=== PATIENT | female | born 1940 | race Caucasian/White ===

== ENCOUNTER 2017-01-10 09:53 | Outpatient (CLI) | payer MEDICARE ==
--- NOTE | 2017-01-10 14:19 | CT ---
ABDOMEN CT WITH CONTRAST PELVIC CT WITH CONTRAST: Date: 01/10/17 HISTORY: Acute cognitive decline. Weight loss. Left-sided abdominal pain. COMPARISON: None. TECHNIQUE: An abdomen and pelvis CT are performed with oral and IV contrast. Coronal reformatted images are sub mitted for interpretation. FINDINGS: ABDOMEN CT: Ground-glass opacities in the lung bases likely due to chronic change. Heart size is upper normal. N o significant pericardial fluid. The descending thoracic aorta and abdominal aorta have an overall n ormal caliber. No periaortic fat stranding. Intra and extrahepatic portal vein is patent. Liver, spleen, pancreas, and adrenal glands have appropriate enhancement. Surgically absent gallbladder. Bilateral extrarenal pelvises are normal. Nonobstructing cortically based calcification in the right kidney. There is adjacent scarring. There is symmetric enhancement of the kidneys. Bilaterally, no obstructive uropathy. There is a hypodensity emanating from the upper pole of the left kidney measur ing 2.0 x 1.9 cm with an attenuation coefficient of 35 Hounsfield units. Subtle areas of hyperdensit y may represent enhancement. Evaluation is incomplete on this examination. Bilaterally, no obstructi ve uropathy. Symmetric attenuation of the psoas muscles. Gastric mucosa, duodenum, and multiple normal caliber small bowel loops are noted. Ileocecal junctio n is normal. Normal caliber appendix. Scattered fecal material in a nondistended, nondilated colon. There are diverticula in the sigmoid colon. No diverticulitis. PELVIC CT: Uterus demonstrates a calcified leiomyoma. Pelvic structures are otherwise unremarkable. No mass, ly mphadenopathy, or free air. Nonspecific calcification in the right hemipelvis. Urinary bladder is un remarkable. There are no osteoblastic or osteolytic lesions. IMPRESSION: 1. Indeterminate hypodensity emanating from the upper pole of the left kidney. Evaluation is incomp lete. Better interrogation with an abdomen MRI is recommended. 2. Colonic diverticulosis, without evidence of diverticulitis. If the patient has not undergone a r ecent colonoscopy, better interrogation of the colon is recommended with colonoscopy. Code T POS: [facility]
[2017-01-10] MEDS ORDERED: Iopamidol 370 76% 100 ML VIAL ONE (15:02)
== END 2017-01-10 09:54 | disposition home or self-care (01) ==
LOC: CT 09:53
PROVIDERS: ATTEND Family Medicine
DX: R41.841 Cognitive communication deficit (principal); K52.9 Noninfective gastroenteritis and colitis, unspecified; R10.84 Generalized abdominal pain; R63.4 Abnormal weight loss; N28.89 Other specified disorders of kidney and ureter; K57.30 Diverticulosis of large intestine without perforation or abscess without bleeding
CPT/HCPCS: 74177

== ENCOUNTER 2017-02-03 10:31 | Outpatient (CLI) | payer MEDICARE ==
--- NOTE | 2017-02-03 13:32 | MRI ---
MRI ABDOMEN WITH AND WITHOUT CONTRAST: Date: 02/03/17 HISTORY: Abnormal finding of the left kidney on a recent CT examination. COMPARISON: CT abdomen and pelvis dated 01/10/17. FINDINGS: In the liver, there is no significant hepatic steatosis. No abnormal enhancing mass within the liver. There is some vascular shunting in the periphery of the liver. There are multiple bilateral renal cysts. The area in question on the prior examination is a simple c yst of the left kidney. No solid component enhancement. There is mild prominence of the bilateral renal collecting systems and renal pelvises with normalizat ion of the proximal ureters. Pancreas is unremarkable. There is focal ectasia of the infrarenal abdom inal aorta which measures 2.3 cm. No dilated loops of bowel in the upper abdomen. Moderate levoscoliosis of the thoracic spine. IMPRESSION: 1. Corresponding to the abnormality in question on the prior CT examination is a simple renal cy st. 2. Mild dilatation of the renal pelvis and calyces suggests chronic low grade ureteropelvic junc tion obstruction. POS: [facility]
[2017-02-03] MEDS ORDERED: Gadobenate Dimeglumine 529 MG/1 ML (20ML VIAL) ONE (15:31)
== END 2017-02-03 10:32 | disposition home or self-care (01) ==
LOC: MRI 10:31
PROVIDERS: ATTEND Family Medicine
DX: R63.4 Abnormal weight loss (principal); R93.429 Abnormal radiologic findings on diagnostic imaging of unspecified kidney; R93.3 Abnormal findings on diagnostic imaging of other parts of digestive tract; N28.1 Cyst of kidney, acquired
CPT/HCPCS: 74183; A9579

== ENCOUNTER 2017-02-21 09:18 | Outpatient (CLI) | payer MEDICARE | END 2017-02-21 09:19 | disposition home or self-care (01) | LOC: BICMAMMO 09:18 | PROVIDERS: ATTEND Family Medicine | DX: Z12.31 Encounter for screening mammogram for malignant neoplasm of breast (principal) | CPT/HCPCS: 77067; G0202 ==

== ENCOUNTER 2017-03-03 07:54 | Outpatient (CLI) | payer MEDICARE ==
--- NOTE | 2017-03-03 11:41 | CT ---
NONCONTRAST LOW DOSE CT THORAX: Date: 03-03-17 History: Smoking history for approximately 30 years. Patient also states pain in mid chest and produc tive cough. Comparison: None available. FINDINGS: No discrete pulmonary nodular mass is seen. There are mild emphysematous changes seen within the uppe r lobes. There is atelectasis present in the lower lobes bilaterally. No pleural effusion is seen. The heart is mildly enlarged. There are dense vascular calcifications seen in the coronary arteries a s well as involving the thoracic aorta. Lack of intravenous contrast limits evaluation of the vascular structures and limits evaluation of th e mediastinum but no enlarged lymph nodes are appreciated on this exam. Pulmonary arteries are promin ent and an element of pulmonary artery hypertension cannot be excluded. Visualized upper abdomen demonstrates a grossly normal nonenhanced CT appearance. There is left convex scoliosis of the thoracic spine with multilevel degenerative changes in the thor acic spine. IMPRESSION: 1. Lung rads category 1 - no pulmonary nodules are visualized. Continued annual low dose screening CT thorax is recommended. 2. Code S - mild prominence of the pulmonary arteries suggesting an element of pulmonary artery hyper tension. 3. Mild emphysematous changes within the upper lobes. 4. Mild cardiomegaly and dense vascular calcifications in the coronary arteries in the thoracic aorta . POS: [facility]
== END 2017-03-03 07:55 | disposition home or self-care (01) ==
LOC: CT 07:54
PROVIDERS: ATTEND Family Medicine
DX: Z87.891 Personal history of nicotine dependence (principal); I51.7 Cardiomegaly
CPT/HCPCS: G0297

== ENCOUNTER 2017-08-04 09:24 | Outpatient (CLI) | payer MEDICARE, OTHER | END 2017-08-04 09:25 | disposition home or self-care (01) | LOC: BICMRI 09:24 | PROVIDERS: ATTEND Psychiatry & Neurology Neurology | DX: R41.3 Other amnesia (principal); I99.8 Other disorder of circulatory system | CPT/HCPCS: 70551 ==

== ENCOUNTER 2017-10-20 12:42 | Outpatient (CLI) | payer MEDICARE, OTHER | END 2017-10-20 12:43 | disposition home or self-care (01) | LOC: CP 12:42 | PROVIDERS: ATTEND Internal Medicine Critical Care Medicine | DX: J44.9 Chronic obstructive pulmonary disease, unspecified (principal) | CPT/HCPCS: 94060; 94727; 94729 ==

== ENCOUNTER 2018-06-22 07:58 | Outpatient (CLI) | payer MEDICARE ==
--- NOTE | 2018-06-22 09:03 | CT ---
FCT pulmonary lung scan without IV contrast INDICATION: Lung cancer screening protocol; 77 year-old females; history of smoking for 40 years, tru t 14 years ago; personal history of tobacco abuse COMPARISON: Prior CT pulmonary lung scan March 03, 2017 FINDINGS: LUNGS: Nodules\mass: There is a 4 mm groundglass pulmonary nodule within the left lower lobe on image 30 of series 3 which is stable. There are sub-4 mm, subpleural pulmonary nodules involving the right upper lobe on image 25 of series 3 which was not present on the prior exam. Emphysema: Moderate to severe Additional findings: No focal consolidation is evident. Mediastinum: There are severe calcifications involving the thoracic aorta and coronary arteries. Ther e are mildly prominent lymph nodes within the mediastinum which are stable. There is prominence of th e pulmonary arterial tree likely related to underlying secondary pulmonary arterial hypertension. Upper abdomen: There is a stable left adrenal adenoma. There is hypodensity involving the superior po le of the left kidney which is stable to comparison CT abdomen pelvis dated 01/31/2018 Osseous structures: There is thoracolumbar scoliosis. There is scattered degenerative and osteoarthri tic change. IMPRESSION: Lung RADS category 2: Benign. Continue annual screening with low-dose CT in 12 months.
== END 2018-06-22 07:59 | disposition home or self-care (01) ==
LOC: CT 07:58
PROVIDERS: ATTEND Family Medicine
DX: Z87.891 Personal history of nicotine dependence (principal)
CPT/HCPCS: G0297

== ENCOUNTER 2018-07-12 22:52 | Inpatient (IN) | payer MEDICARE ==
[2018-07-13 01:17] LABS: Troponin I 0.033 ng/mL (< 0.028)
[2018-07-13] MEDS ORDERED: Acetaminophen 325 MG TAB PO PRN (01:34)
[2018-07-13] MEDS ORDERED: Ondansetron ODT 4 MG TAB PO PRN (01:34)
[2018-07-13] MEDS ORDERED: Ondansetron PF 4 MG/2 ML Vial IVP PRN (01:34)
[2018-07-13] MEDS ORDERED: Dextrose 5% in Water 1,000 ML IV PRN (02:43)
[2018-07-13] MEDS ORDERED: Dextrose 50% Abboject 50 ML SYRINGE SLOW IVP PRN (02:43)
[2018-07-13 03:34] LABS: #Eosinphils 0.1 thou/uL (0.0-0.7); #Lymphocytes 1.9 thou/uL (1.20-3.40); #Monocytes 1.1 thou/uL (0.11-0.59); %Basophils 0.6 % (0.0-1.0); %Eosinophils 1.6 % (0.0-10.0); %Lymphocytes 22.6 % (21.0-51.0); %Neutrophils 61.2 % (42.0-75.0); Hemoglobin 14.1 g/dL (12.0-16.0); Mean Corpuscular Hemoglobin 28.8 pg (27.0-31.0); Mean Platelet Volume 7.3 fL (7.4-10.4); Platelet Count 275 thou/uL (130-400); RBC Distribution Width 13.9 % (11.5-14.5); Red Blood Cell (RBC) Count 4.88 mill/uL (4.20-5.40); White Blood Cell (WBC) Count 8.2 thou/uL (4.8-10.8)
[2018-07-13 03:54] LABS: Anion Gap 12 mmol/L (10-20); BUN (Urea Nitrogen) 14 mg/dL (9.8-20.1); Calc. Creatinine Clearance 0 mL/min (70-130); Calcium 9.5 mg/dL (7.8-10.44); Carbon Dioxide 28 mmol/L (23-31); Chloride 104 mmol/L (98-107); Estimated GFR-MDRD 68; Glucose 103 mg/dL (83-110); Potassium 3.9 mmol/L (3.5-5.1); Sodium 140 mmol/L (136-145)
[2018-07-13 03:58] LABS: Troponin I Less than 0.010 ng/mL (< 0.028)
--- NOTE | 2018-07-13 04:12 | HP ---
PRIMARY CARE DOCTOR: Dr. Tereso Norton. CODE STATUS: Full code. TIME OF EVALUATION: 01:10 a.m. CHIEF COMPLAINT: Shortness of breath and right hip pain. HISTORY OF PRESENT ILLNESS: This is a 77-year-old female patient with past medical history of COPD, congestive heart failure, hypertension, diabetes type 2, came to the hospital after having complaint of shortness of breath. The symptoms have been present for the past day and has been gradually getting worse. No clear triggers, no alleviating factors. The patient has a heart monitor in place that has been given by the office receptionist to monitor for any arrhythmia associated with feeling lightheaded, that has not been the case. The patient was transferred from [place] and was placed on oxygen nasal cannula 2 L to keep saturation over 90. The patient also reported some right hip pain, also present in the lower back on the right side that is also new, and she has been unable to walk due to severe pain. Symptoms are severe, no clear triggers, no alleviating factors. REVIEW OF SYSTEMS: Unable to fully obtain. The patient has dementia. Information has been gathered from the sister as described in HPI. PAST MEDICAL HISTORY: COPD, hypertension, pneumonia, diabetes type 2, and dementia. PAST SURGICAL HISTORY: Cholecystectomy. PSYCH HISTORY: Dementia. FAMILY HISTORY: Reviewed, noncontributory to this case. SOCIAL HISTORY: No alcohol. No drugs. No smoking history. KNOWN ALLERGIES: No known drug allergies. REPORTED MEDICATIONS: 1. Advair. 2. Spiriva. 3. Actos. 4. Meloxicam. 5. Lasix. 6. Aspirin. 7. Cozaar. PHYSICAL EXAMINATION: VITAL SIGNS: On presentation, blood pressure 135/80 with heart rate 69, respiratory rate was 18, and temperature 97.6. Pain 10/10. Oxygen saturation 96% on 4 L. GENERAL APPEARANCE: The patient is alert. Disoriented due to dementia, not in acute distress. HEENT: Eyes, normal conjunctivae. Moist oral mucosa. Anicteric. No JVD. RESPIRATORY: Bilateral air entry is decreased. No rales. No wheezes. Symmetric expansion. CARDIOVASCULAR: Normal rate and regular rhythm. No murmurs. No gallop. EXTREMITIES: Bilateral leg edema 1+. ABDOMEN: Soft. Normal bowel sounds. SKIN: Warm, intact. No pallor. No rash. No redness. Peripheral pulses are present. Capillary refill seems to be intact. NEUROLOGIC: No evidence of any new focal weakness. Baseline speech. Cranial nerves seem to be intact. PSYCH: The patient is in good mood. No anxiety. The patient has dementia, suboptimal judgment. MUSCULOSKELETAL: The patient has right sciatic pain with decreased range of motion and mobility in the right lower extremity due to pain. DIAGNOSTIC DATA: EKG was reviewed. The patient has normal sinus rhythm with a rate of 65 with NC 186, QRS 108, QT corrected 461, RBBB, had some T-wave inversion compatible with inferolateral ischemia. Chest x-ray was reviewed. Enlarged cardiac silhouette with pulmonary vascular congestion. Pelvis x-ray was done. The patient has no displaced pelvic fracture. Chest, thorax CT angio was done. The patient had dilated pulmonary arterial vascular, suggesting pulmonary arterial hypertension. No evidence of pulmonary arterial embolism. No pericardial effusion. Lumbar spine CT was done. No acute osseus abnormalities or degenerative changes. CT evaluation for central canal or neuroforaminal stenosis could be best assessed via followup MRI as clinically warranted. Mild aneurysmal dilation of the infrarenal abdominal aorta. LABORATORY DATA: Labs were reviewed. Troponin 0.033. Hematology: White count 7.4, hemoglobin 13.6, MCV 89.4, and platelet count 262. Chemistry was reviewed. The patient has sodium of 142, potassium 3.9, chloride 108, carbon dioxide 24, anion gap 14, BUN 13, creatinine 0.95, GFR of 57, and glucose 113. Calcium was normal. Magnesium was normal. LFTs were normal. Beta natriuretic peptide was 994. First troponin was normal, second one 0.033. ASSESSMENT AND PLAN: The patient will be placed in the hospital with following medical problems. 1. Acute congestive heart failure. This is a new presentation. The patient also have some changes in the EKG, we will trend troponins, we will diurese the patient, monitor on tele. We will consult Cardiology given new onset of congestive heart failure for any further planning or workup. We will do echo. 2. Right lower extremity sciatic pain. We will treat medically. There is no evidence of any other acute problems, if further concerns are present may do MRI of the spine to rule out any other findings not seen on CT. 3. History of flutter, reconcile home medications. Continue anticoagulation. We will monitor on tele. 4. History of chronic obstructive pulmonary disease. This is chronic, seems to be stable, reconcile home medications. Adjust as needed. 5. Controlled diabetes, I will place the patient on sliding scale for optimal control. 6. Deep venous thrombosis prophylaxis. The patient is on chronic anticoagulation. 7. Dementia. The patient is confused, very good mood and will need supportive care as inpatient. Job ID: [id number] MTDD
[2018-07-13] MEDS: Ipratropium Bromide 2.5 ml Neb NEB SCH ×3 (07:45→18:53)
[2018-07-13] MEDS ORDERED: Spiriva 18 MCG CAP (Box of 5 Caps) INH SCH (09:00)
[2018-07-13] MEDS: Dronedarone HCl 400 MG TAB PO SCH ×2 (11:10→17:39)
[2018-07-13] MEDS: Lisinopril 20 MG TAB PO SCH ×2 (11:10→22:18)
[2018-07-13] MEDS: Furosemide 40 MG/4 ML VIAL SLOW IVP SCH (12:47)
[2018-07-13] MEDS: Apixaban 5 MG TAB PO SCH ×2 (13:24→22:19)
[2018-07-13 14:08] LABS: Mean Corpuscular HGB CONC 31.4 g/dL (32.0-36.0); Mean Corpuscular Hemoglobin 28.2 pg (27.0-31.0); Mean Corpuscular Volume 89.8 fL (78.0-98.0); Mean Platelet Volume 7.5 fL (7.4-10.4); Platelet Count 295 thou/uL (130-400); RBC Distribution Width 13.8 % (11.5-14.5); White Blood Cell (WBC) Count 7.5 thou/uL (4.8-10.8)
[2018-07-13 14:28] LABS: Anion Gap 13 mmol/L (10-20); BUN (Urea Nitrogen) 16 mg/dL (9.8-20.1); Calc. Creatinine Clearance 0 mL/min (70-130); Calcium 9.6 mg/dL (7.8-10.44); Carbon Dioxide 30 mmol/L (23-31); Chloride 101 mmol/L (98-107); Estimated GFR-MDRD 60; Glucose 87 mg/dL (83-110); Magnesium 2.1 mg/dL (1.6-2.6); Potassium 4.1 mmol/L (3.5-5.1); Sodium 140 mmol/L (136-145)
[2018-07-13 16:17] VITALS: BMI 20.3
[2018-07-14] MEDS: Ipratropium Bromide 2.5 ml Neb NEB SCH ×4 (00:08→18:56)
[2018-07-14 06:57] LABS: Hemoglobin 13.7 g/dL (12.0-16.0); Mean Corpuscular HGB CONC 32.2 g/dL (32.0-36.0); Mean Corpuscular Hemoglobin 29.4 pg (27.0-31.0); Mean Corpuscular Volume 91.2 fL (78.0-98.0); Mean Platelet Volume 7.9 fL (7.4-10.4); Platelet Count 256 thou/uL (130-400); RBC Distribution Width 13.8 % (11.5-14.5); Red Blood Cell (RBC) Count 4.66 mill/uL (4.20-5.40)
[2018-07-14 07:31] LABS: Anion Gap 13 mmol/L (10-20); BUN (Urea Nitrogen) 21 mg/dL (9.8-20.1); Calc. Creatinine Clearance 44 mL/min (70-130); Calcium 9.4 mg/dL (7.8-10.44); Carbon Dioxide 27 mmol/L (23-31); Chloride 100 mmol/L (98-107); Estimated GFR-MDRD 58; Glucose 71 mg/dL (83-110); Magnesium 1.7 mg/dL (1.6-2.6); Potassium 3.6 mmol/L (3.5-5.1); Sodium 136 mmol/L (136-145)
[2018-07-14] MEDS: Dronedarone HCl 400 MG TAB PO SCH ×2 (08:36→17:00)
[2018-07-14] MEDS: Lisinopril 20 MG TAB PO SCH ×2 (08:36→21:18)
[2018-07-14] MEDS: Apixaban 5 MG TAB PO SCH ×2 (08:36→21:18)
[2018-07-14] MEDS: Furosemide 40 MG/4 ML VIAL SLOW IVP SCH (08:36)
--- NOTE | 2018-07-14 16:36 | PRG ---
DATE OF SERVICE: 07/14/2018 SUBJECTIVE: The patient is seen and examined at the bedside. She complains about right hip pain. Her shortness of breath is slightly better. OBJECTIVE: VITAL SIGNS: Blood pressure is 96/54, pulse is 71, respiratory rate is 14, O2 saturation is 93% on 2 L by nasal cannula, and temperature is 97.8. HEENT: Head is atraumatic and normocephalic. Eyes are PERRLA. Sclerae are nonicteric. Oral mucosa is moist. NECK: Supple. LUNGS: Breath sounds are slightly diminished at both bases. No wheezing. No rales. HEART: S1 and S2 normal. No S3. No S4. ABDOMEN: Soft, nontender, and nondistended. Bowel sounds are present. No organomegaly. EXTREMITIES: There is pain in the right sacroiliac joint area on palpation. Her right hip joint is having good range of motion without any pain. NEUROLOGICAL: She is alert and oriented x4. There is no any motor or sensory deficit present. Cranial nerves are intact. LABORATORY DATA: Showed normal CBC. Normal electrolytes, BUN of 21, creatinine 0.94, normal glycemia. BNP down to 235.6. IMPRESSION: 1. Congestive heart failure, acute onset, improved with IV Lasix. Echocardiogram is pending. 2. History of chronic obstructive pulmonary disease. 3. Hypertension. 4. Diabetes mellitus, type 2. 5. History of dementia. PLAN: 1. Plan is to continue her gentle diuresis. Check echocardiogram results. Start her on prednisone 20 mg once a day p.o. for this right sacroiliac joint inflammation. 2. History of flutter. The patient is back on her anticoagulation medications, Eliquis and Multaq. We will continue sliding scale. Job ID: [id number]
[2018-07-15] MEDS: Ipratropium Bromide 2.5 ml Neb NEB SCH ×5 (00:18→23:23)
[2018-07-15] MEDS: predniSONE 20 MG TAB PO SCH (09:44)
[2018-07-15] MEDS: Dronedarone HCl 400 MG TAB PO SCH ×2 (09:44→16:10)
[2018-07-15] MEDS: Apixaban 5 MG TAB PO SCH ×2 (09:44→21:48)
[2018-07-15] MEDS: Lisinopril 20 MG TAB PO SCH ×2 (09:45→21:52)
[2018-07-15] MEDS: Furosemide 40 MG/4 ML VIAL SLOW IVP SCH (09:45)
[2018-07-15] MEDS ORDERED: Albuterol Sulfate 2.5 mg/3 ml Neb NEB PRN (16:44)
--- NOTE | 2018-07-15 17:26 | PRG ---
DATE OF SERVICE: 07/15/2018 SUBJECTIVE: The patient is seen and examined at the bedside. She is feeling somewhat better. Her pain level improved. OBJECTIVE: VITAL SIGNS: Blood pressure is 110/56, pulse is 79, temperature is 97.9, respirations 19, O2 saturation is 93% on 2 L by nasal cannula. HEENT: Head is atraumatic and normocephalic. Eyes are PERRLA. Sclerae are nonicteric. Oral mucosa is moist. NECK: Supple. LUNGS: Breath sounds somewhat diminished at both bases. HEART: S1 and S2, somewhat irregular. No S3. No S4. ABDOMEN: Soft and nontender. EXTREMITIES: No clubbing, cyanosis, or edema. NEUROLOGIC: She follows my commands. She moves her all 4 extremities, although there is some pain on palpation of the right sacroiliac joint area. LABORATORY DATA: Glycemia is ranging from 86 to 181. Echocardiogram showed ejection fraction of the left ventricle at 50% to 55%, moderately dilated left atrium, markedly enlarged right atrium size, severely enlarged right ventricle cavity, and [id number] tricuspid regurgitation with right ventricular systolic pressure elevation. IMPRESSION: 1. Congestive heart failure with some cor pulmonale and dilatation of the right ventricle. 2. History of chronic obstructive pulmonary disease. 3. Hypertension. 4. Diabetes mellitus. 5. Right sacroiliac joint area pain, which is most likely inflammatory. 6. History of dementia. 7. Diabetes mellitus. PLAN: Plan is to continue her gentle diuresis. She is improving. Her shortness of breath improved. Her right hip area/pelvis area pain improved too. We will continue her PT. We will continue her anticoagulation with Eliquis and Multaq. We will continue her sliding scale. Her glycemia is relatively well controlled. I think she can be discharged home tomorrow if she continues improving. Job ID: [id number]
[2018-07-15] MEDS: HumaLOG 300 UNITS/3 ML VIAL SC PRN (17:27)
[2018-07-15] MEDS: Pancrelipase DR 12000 1 CAP PO SCH (17:27)
[2018-07-15] MEDS: Azelastine 137 MCG/Spray 30 ML NS SCH (21:50)
[2018-07-16] MEDS: Ipratropium Bromide 2.5 ml Neb NEB SCH ×4 (05:46→23:37)
[2018-07-16] MEDS: Pancrelipase DR 12000 1 CAP PO SCH ×3 (08:35→16:31)
[2018-07-16] MEDS: predniSONE 20 MG TAB PO SCH (08:35)
[2018-07-16] MEDS: Apixaban 5 MG TAB PO SCH ×2 (08:35→20:08)
[2018-07-16] MEDS: Dronedarone HCl 400 MG TAB PO SCH ×2 (08:35→16:31)
[2018-07-16] MEDS: Donepezil HCl 5 MG TAB PO SCH (08:36)
[2018-07-16] MEDS: Lisinopril 20 MG TAB PO SCH (08:36)
[2018-07-16] MEDS: Furosemide 40 MG/4 ML VIAL SLOW IVP SCH (08:36)
[2018-07-16] MEDS: Multivit, Therapeutic 1 TAB PO SCH (08:37)
[2018-07-16] MEDS: Losartan 25 MG TAB PO SCH (08:37)
[2018-07-16] MEDS: Mirtazapine 15 MG TAB PO SCH (08:37)
[2018-07-16] MEDS: Azelastine 137 MCG/Spray 30 ML NS SCH ×2 (08:45→20:09)
[2018-07-16] MEDS: OLOPATADINE HCL 30.5 GM NS SCH (14:06)
--- NOTE | 2018-07-16 17:24 | PDOC.PN ---
- Subjective Encounter Start Date: 07/16/18 Encounter Start Time: 17:22 Ms. Arnett was seen today in follow-up of CHF exacerbation. She denies any trouble breathing, but is more concerned about pain which starts in her lower back and radiates doen her right leg and to her knee. She says at times when she places weight on it, it feels like it is going to give out. - Objective Resuscitation Status - Order Detail: 07/13/18 01:34 Resuscitation Status Routine Resuscitation Status: FULL: Full Resuscitation MAR Reviewed: Yes Vital Signs & Weight: Vital Signs (12 hours) Temp Pulse Pulse Pulse Resp BP BP 07/16/18 16:21 97.3 F L 65 16 07/16/18 12:04 97.4 F L 72 18 07/16/18 11:33 60 18 07/16/18 11:12 74 74 109/63 129/62 07/16/18 07:28 97.4 F L 68 17 07/16/18 05:46 63 18 BP Pulse Ox 07/16/18 16:21 109/55 L 96 07/16/18 12:04 115/55 L 95 07/16/18 11:33 93 L 07/16/18 11:12 07/16/18 07:28 122/61 94 L 07/16/18 05:46 94 L Weight Weight 123 lb 10.869 oz I&O: 07/15/18 07/16/18 07/17/18 06:59 06:59 06:59 Intake Total 820 930 Output Total 200 Balance 620 930 Result Diagrams: 07/14/18 05:57 07/14/18 05:57 Additional Labs: Accuchecks 07/16/18 07/16/18 07/16/18 16:31 11:01 05:32 POC Glucose 153 H 109 88 07/15/18 20:08 POC Glucose 268 H Phys Exam - Physical Examination HEENT: PERRLA Respiratory: no wheezing, no rales, no rhonchi, clear to auscultation bilateral Cardiovascular: RRR, no significant murmur, no rub Gastrointestinal: soft, non-tender, no distention, positive bowel sounds Musculoskeletal: no edema, pulses present Neurological: non-focal Dx/Plan (1) Acute on chronic diastolic CHF (congestive heart failure), NYHA class 3 Code(s): I50.33 - ACUTE ON CHRONIC DIASTOLIC (CONGESTIVE) HEART FAILURE Status : Acute (2) Pulmonary hypertension Code(s): I27.20 - PULMONARY HYPERTENSION, UNSPECIFIED Status: Chronic (3) Afib Code(s): I48.91 - UNSPECIFIED ATRIAL FIBRILLATION Status: Acute Comment: new onset (4) DM type 2 (diabetes mellitus, type 2) Status: Chronic (5) HTN (hypertension) Code(s): I10 - ESSENTIAL (PRIMARY) HYPERTENSION Status: Chronic Qualifiers: Hypertension type: essential hypertension Qualified Code(s): I10 - Essential (primary) hypertension (6) Muscular deconditioning Code(s): R29.898 - OTH SYMPTOMS AND SIGNS INVOLVING THE MUSCULOSKELETAL SYSTEM Status: Chronic (7) COPD (chronic obstructive pulmonary disease) Status: Chronic Qualifiers: COPD type: chronic bronchitis Chronic bronchitis type: unspecified Qualified Code(s): J42 - Unspecified chronic bronchitis - Plan * Acute on chronic diastolic heart failure- compensated- can change Lasix to p.o. * She is on both Lisinopril and Losartan- unsure if this is intentional- will discontinue Lisinopril. * AFIB- her heart rate is controlled- continue Eliquis for stroke prevention * COPD- stable * Deconditioning- will consult PT/OT and her sister is requesting a Rehab evaluation
[2018-07-16] MEDS: HumaLOG 300 UNITS/3 ML VIAL SC PRN (20:15)
[2018-07-17] MEDS: Ipratropium Bromide 2.5 ml Neb NEB SCH ×3 (06:56→18:57)
[2018-07-17] MEDS: Donepezil HCl 5 MG TAB PO SCH (09:38)
[2018-07-17] MEDS: predniSONE 20 MG TAB PO SCH (09:38)
[2018-07-17] MEDS: Apixaban 5 MG TAB PO SCH ×2 (09:38→20:43)
[2018-07-17] MEDS: Multivit, Therapeutic 1 TAB PO SCH (09:38)
[2018-07-17] MEDS: Furosemide 40 MG TAB PO SCH (09:39)
[2018-07-17] MEDS: Azelastine 137 MCG/Spray 30 ML NS SCH ×2 (09:39→20:42)
[2018-07-17] MEDS: Dronedarone HCl 400 MG TAB PO SCH ×2 (09:39→17:40)
[2018-07-17] MEDS: Losartan 25 MG TAB PO SCH (09:39)
[2018-07-17] MEDS: Pancrelipase DR 12000 1 CAP PO SCH ×3 (09:39→17:40)
[2018-07-17] MEDS: Mirtazapine 15 MG TAB PO SCH (09:39)
--- NOTE | 2018-07-17 11:53 | PDOC.PN ---
- Subjective Encounter Start Date: 07/17/18 Encounter Start Time: 11:52 Ms. Arnett was seen today in follow-up of CHF exacerbation. She says she is breathing better today She notes less shortness of breath. - Objective Resuscitation Status - Order Detail: 07/13/18 01:34 Resuscitation Status Routine Resuscitation Status: FULL: Full Resuscitation MAR Reviewed: Yes Vital Signs & Weight: Vital Signs (12 hours) Temp Pulse Resp BP Pulse Ox 07/17/18 11:43 97.5 F L 66 16 131/72 97 07/17/18 08:22 97 07/17/18 08:15 97.6 F 65 16 130/74 97 07/17/18 06:58 98 07/17/18 06:56 60 16 98 07/17/18 04:00 97.6 F 61 17 123/70 94 L Weight Weight 122 lb 5.705 oz I&O: 07/16/18 07/17/18 07/18/18 06:59 06:59 06:59 Intake Total 930 1200 Balance 930 1200 Result Diagrams: 07/14/18 05:57 07/14/18 05:57 Additional Labs: Accuchecks 07/17/18 07/17/18 07/16/18 11:24 05:16 20:15 POC Glucose 90 81 238 H 07/16/18 16:31 POC Glucose 153 H Phys Exam - Physical Examination HEENT: PERRLA Respiratory: no wheezing, no rales, no rhonchi, clear to auscultation bilateral Cardiovascular: RRR, no significant murmur, no rub Gastrointestinal: soft, non-tender, no distention, positive bowel sounds Musculoskeletal: pulses present trace lower extremity edema Neurological: non-focal Dx/Plan (1) Acute on chronic diastolic CHF (congestive heart failure), NYHA class 3 Code(s): I50.33 - ACUTE ON CHRONIC DIASTOLIC (CONGESTIVE) HEART FAILURE Status : Acute (2) Pulmonary hypertension Code(s): I27.20 - PULMONARY HYPERTENSION, UNSPECIFIED Status: Chronic (3) Afib Code(s): I48.91 - UNSPECIFIED ATRIAL FIBRILLATION Status: Acute Comment: new onset (4) DM type 2 (diabetes mellitus, type 2) Status: Chronic (5) HTN (hypertension) Code(s): I10 - ESSENTIAL (PRIMARY) HYPERTENSION Status: Chronic Qualifiers: Hypertension type: essential hypertension Qualified Code(s): I10 - Essential (primary) hypertension (6) Muscular deconditioning Code(s): R29.898 - OTH SYMPTOMS AND SIGNS INVOLVING THE MUSCULOSKELETAL SYSTEM Status: Chronic (7) COPD (chronic obstructive pulmonary disease) Status: Chronic Qualifiers: COPD type: chronic bronchitis Chronic bronchitis type: unspecified Qualified Code(s): J42 - Unspecified chronic bronchitis - Plan * Acute on chronic diastolic heart failure- improved * COPD- stable * HTN- blood pressure is controlled * DM- blood glucose is stable * Lumbar DJD- this limits her mobility, and she is having an acute on chronic flair- continue PT/OT and will screen for Rehab or Swing bed/Skilled.
--- NOTE | 2018-07-17 14:06 | PQF ---
CLINICAL DOCUMENTATION IMPROVEMENT CLARIFICATION FORM: ICD-10 Updated PLEASE DO AN ADDENDUM TO THE PROGRESS NOTE WITH ANY DOCUMENTATION UPDATES OR ADDITIONS AND CARRY THROUGH TO DC SUMMARY. THANK YOU. DATE: 07/17/2018; 07/19/2018 ATTN: Dr. Frye Please exercise your independent, professional judgment in responding to the clarification form. Clinical indicators are provided on the bottom of this form for your review Please check appropriate box(s): [ ] Acute Respiratory Failure: [ ] with Hypoxia [ ] with Hypercapnia [ X] Acute On Chronic Respiratory Failure: X ] with Hypoxia [ ] with Hypercapnia [ ] Acute Respiratory Failure due to: (etiology) [ ] Chronic Respiratory Failure only [ ] with Hypoxia [ ] with Hypercapnia [ ] Other diagnosis [ ] Unable to determine In addition, please specify: Present on Admission (POA): [ X ] Yes [ ] No [ ] Unable to determine For continuity of documentation, please document condition throughout progress notes and discharge summary. Thank You. CLINICAL INDICATORS - SIGNS / SYMPTOMS / LABS ER RECORD 07/13: Resp 14-20, O2 sat 94 - 96 on 4L Oxygen DX: CHF. Hypoxia PN 07/14: Her shortness of breath is slightly better. VS: Resp. 14, O2 saturation is 93% on 2 L by nasal cannula. RISKS: H&P 07/13: Pt was transferred from [place] and was placed on oxygen nasal cannula 2L to keep saturation over 90. Acute CHF. Dementia. TREATMENT: MAR: Order 07/13-07/16: Lasix 40mg IVP Daily Order 07/14: Resp: O2 to keep sats 92% Thank you, Tarah (This form is maintained as a part of the permanent medical record) 2014 [employer]. All Rights Reserved Tarah Eugene RN, BSN [email or web address] Office: [phone] [facility]
[2018-07-18] MEDS: Ipratropium Bromide 2.5 ml Neb NEB SCH ×3 (00:01→12:41)
[2018-07-18] MEDS: ALPHA LIPOIC ACID 300 MG PO SCH ×2 (00:31→01:08)
[2018-07-18] MEDS: Furosemide 40 MG TAB PO SCH (08:17)
[2018-07-18] MEDS: Multivit, Therapeutic 1 TAB PO SCH (08:17)
[2018-07-18] MEDS: Mirtazapine 15 MG TAB PO SCH (08:17)
[2018-07-18] MEDS: predniSONE 20 MG TAB PO SCH (08:17)
[2018-07-18] MEDS: Dronedarone HCl 400 MG TAB PO SCH (08:18)
[2018-07-18] MEDS: Losartan 25 MG TAB PO SCH (08:18)
[2018-07-18] MEDS: Apixaban 5 MG TAB PO SCH (08:19)
[2018-07-18] MEDS: Pancrelipase DR 12000 1 CAP PO SCH ×2 (08:19→12:35)
[2018-07-18] MEDS: Azelastine 137 MCG/Spray 30 ML NS SCH (08:19)
[2018-07-18] MEDS: Donepezil HCl 5 MG TAB PO SCH (08:19)
--- NOTE | 2018-07-18 12:36 | PDOC.PN ---
- Subjective Encounter Start Date: 07/18/18 Encounter Start Time: 12:34 Ms. Arnett was seen today in follow-up of CHF exacerbation. She does not have any complaints today. - Objective Resuscitation Status - Order Detail: 07/13/18 01:34 Resuscitation Status Routine Resuscitation Status: FULL: Full Resuscitation MAR Reviewed: Yes Vital Signs & Weight: Vital Signs (12 hours) Temp Pulse Pulse Pulse Resp BP BP 07/18/18 08:37 64 61 126/57 L 129/66 07/18/18 08:17 07/18/18 07:20 98.0 F 59 L 14 07/18/18 07:03 60 14 07/18/18 04:00 61 BP Pulse Ox Pulse Ox Pulse Ox 07/18/18 08:37 95 97 07/18/18 08:17 95 07/18/18 07:20 139/76 95 07/18/18 07:03 07/18/18 04:00 142/75 H Weight Weight 122 lb 5.705 oz I&O: 07/17/18 07/18/18 07/19/18 06:59 06:59 06:59 Intake Total 1200 850 Balance 1200 850 Result Diagrams: 07/14/18 05:57 07/14/18 05:57 Additional Labs: Accuchecks 07/18/18 07/18/18 07/17/18 11:18 05:14 20:21 POC Glucose 96 82 188 H 07/17/18 16:39 POC Glucose 156 H Phys Exam - Physical Examination HEENT: PERRLA Respiratory: no rales, no rhonchi, wheezing present, clear to auscultation bilateral Cardiovascular: RRR, no significant murmur, no rub Gastrointestinal: soft, non-tender, no distention, positive bowel sounds Musculoskeletal: no edema Dx/Plan (1) Acute on chronic diastolic CHF (congestive heart failure), NYHA class 3 Code(s): I50.33 - ACUTE ON CHRONIC DIASTOLIC (CONGESTIVE) HEART FAILURE Status : Acute (2) Pulmonary hypertension Code(s): I27.20 - PULMONARY HYPERTENSION, UNSPECIFIED Status: Chronic (3) Afib Code(s): I48.91 - UNSPECIFIED ATRIAL FIBRILLATION Status: Acute Comment: new onset (4) DM type 2 (diabetes mellitus, type 2) Status: Chronic (5) HTN (hypertension) Code(s): I10 - ESSENTIAL (PRIMARY) HYPERTENSION Status: Chronic Qualifiers: Hypertension type: essential hypertension Qualified Code(s): I10 - Essential (primary) hypertension (6) Muscular deconditioning Code(s): R29.898 - OTH SYMPTOMS AND SIGNS INVOLVING THE MUSCULOSKELETAL SYSTEM Status: Chronic (7) COPD (chronic obstructive pulmonary disease) Status: Chronic Qualifiers: COPD type: chronic bronchitis Chronic bronchitis type: unspecified Qualified Code(s): J42 - Unspecified chronic bronchitis - Plan * Acute on chronic diastolic heart failure- compensated * DM- stable * HTN- blood pressure is stable * Stable for discharge home.
[2018-07-18 12:46] VITALS: TEMP 98.2
[2018-07-18 12:49] VITALS: BP 125/67
--- NOTE | 2018-07-19 02:56 | DIS ---
DATE OF ADMISSION: 07/13/2018 DATE OF DISCHARGE: 07/18/2018 DISCHARGE DISPOSITION: Home with Home Health. DISCHARGE DIAGNOSES: 1. Acute on chronic diastolic heart failure. 2. Chronic obstructive pulmonary disease. 3. Hypertension. 4. Diabetes mellitus, type 2. 5. Dementia. DISCHARGE MEDICATIONS: Include: 1. Prednisone 20 mg daily. 2. Lasix 40 mg daily. 3. Spiriva inhaler 18 mcg inhaled daily. 4. Patanase spray twice a day. 5. Multivitamin once daily. 6. Mirtazapine 1 tablet daily. 7. Losartan 50 mg daily. 8. Flunisolide nasal spray twice a day. 9. Creon 24,000 units three times a day. 10. Aricept 10 mg daily. 11. Astelin nasal spray daily. 12. Ventolin inhaler q.4 hours as needed. PROCEDURES DONE DURING THE ADMISSION: The patient had an echocardiogram, which demonstrated an ejection fraction of 50% to 55%. Markedly enlarged right ventricle and elevated right ventricular pressure. CODE STATUS: Full code. ALLERGIES: ATORVASTATIN. HOSPITAL COURSE: Ms. Arnett is a pleasant 77-year-old female, who was admitted to the hospital after experiencing shortness of breath. She also noted some right hip pain as well. She was found to be volume overloaded and was diuresed. An echo demonstrated that she had a preserved ejection fraction. She was treated for acute on chronic diastolic heart failure. 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 She did improve with physical therapy during her hospital stay such that it was felt she was safe enough to be discharged home with home health and close outpatient followup. I also suggested that she may consider pulmonary consultation due to the elevated PA pressures. Job ID: [id number]
== END 2018-07-18 15:25 | disposition home health service (06) | DRG 291 ==
LOC: ERS 22:52 → ERHOLD 07-13 00:10 → 2NO 07-13 15:52
PROVIDERS: ADMIT Hospitalist; ATTEND Hospitalist
DX: I11.0 Hypertensive heart disease with heart failure (principal); J96.21 Acute and chronic respiratory failure with hypoxia; E11.9 Type 2 diabetes mellitus without complications; F03.90 Unspecified dementia, unspecified severity, without behavioral disturbance, psychotic disturbance, mood disturbance, and anxiety; I50.33 Acute on chronic diastolic (congestive) heart failure; I27.20 Pulmonary hypertension, unspecified; J44.9 Chronic obstructive pulmonary disease, unspecified; R29.898 Other symptoms and signs involving the musculoskeletal system; I48.91 Unspecified atrial fibrillation; Z87.01 Personal history of pneumonia (recurrent); Z90.49 Acquired absence of other specified parts of digestive tract; Z79.82 Long term (current) use of aspirin; Z79.84 Long term (current) use of oral hypoglycemic drugs; Z88.8 Allergy status to other drugs, medicaments and biological substances; M51.16 Intervertebral disc disorders with radiculopathy, lumbar region; M47.26 Other spondylosis with radiculopathy, lumbar region
CPT/HCPCS: 36415; 36416; 80048; 83735; 83880; 84484; 85025; 85027; 93005; 93306; 93798; 94640; J1940; J7512; Q0162

== ENCOUNTER 2019-02-04 22:24 | Emergency (ER) | payer MEDICARE ==
[2019-02-04 23:11] LABS: #Eosinphils 0.2 thou/uL (0.0-0.7); #Lymphocytes 2.6 thou/uL (1.20-3.40); #Monocytes 0.7 thou/uL (0.11-0.59); #Neutrophils 4.5 thou/uL (1.40-6.50); %Basophils 0.3 % (0.0-1.0); %Eosinophils 2.1 % (0.0-10.0); %Lymphocytes 32.1 % (21.0-51.0); %Monocytes 9.4 % (0.0-10.0); %Neutrophils 56.1 % (42.0-75.0); Hemoglobin 14.1 g/dL (12.0-16.0); Mean Corpuscular Hemoglobin 29.7 pg (27.0-31.0); Mean Corpuscular Volume 92.8 fL (78.0-98.0); Mean Platelet Volume 8.4 fL (7.4-10.4); Platelet Count 248 thou/uL (130-400); RBC Distribution Width 12.4 % (11.5-14.5); Red Blood Cell (RBC) Count 4.76 mill/uL (4.20-5.40); White Blood Cell (WBC) Count 7.9 thou/uL (4.8-10.8)
[2019-02-04 23:35] LABS: ALT (SGPT) 13 U/L (8-55); AST (SGOT) 22 U/L (5-34); Alkaline Phosphatase 79 U/L (40-110); Anion Gap 13 mmol/L (10-20); BUN (Urea Nitrogen) 19 mg/dL (9.8-20.1); Bilirubin, Total 0.5 mg/dL (0.2-1.2); Calc. Creatinine Clearance 0 mL/min (70-130); Calcium 9.5 mg/dL (7.8-10.44); Carbon Dioxide 33 mmol/L (23-31); Chloride 97 mmol/L (98-107); Estimated GFR-MDRD 63; Globulin 3.2 g/dL (2.4-3.5); Glucose 94 mg/dL (83-110); Lipase 95 U/L (8-78); Potassium 3.7 mmol/L (3.5-5.1); Protein, Total 7.2 g/dL (6.0-8.3); Sodium 139 mmol/L (136-145)
== END 2019-02-05 00:45 | disposition home or self-care (01) ==
LOC: ERS 22:24
DX: R19.7 Diarrhea, unspecified (principal); J44.9 Chronic obstructive pulmonary disease, unspecified; E11.9 Type 2 diabetes mellitus without complications; I11.0 Hypertensive heart disease with heart failure; I50.9 Heart failure, unspecified; F03.90 Unspecified dementia, unspecified severity, without behavioral disturbance, psychotic disturbance, mood disturbance, and anxiety; Z87.891 Personal history of nicotine dependence; Z79.899 Other long term (current) drug therapy; Z79.82 Long term (current) use of aspirin
CPT/HCPCS: 80053; 83690; 85025; 96360

== ENCOUNTER 2019-09-12 14:57 | Outpatient (CLI) | payer MEDICARE ==
--- NOTE | 2019-09-12 16:24 | CT ---
CT pulmonary lung scan without IV contrast INDICATION: Lung cancer screening protocol; formersmoker; smoked 1 pack per day for 40 years; quit 15 years ago COMPARISON: CTA of the thorax dated 07/12/[address] pulmonary lung scan dated March 03, 2017 FINDINGS: LUNGS: Nodules\mass: There is a sub-4 mm, subpleural pulmonary nodule on image 54 series 3 within the right upper lobe which is stable to comparison dated 03/03/2017. There are additional smaller subpleural cyst sub-4 mm pulmonary nodules within the right upper lobe that is stable. No suspicious pulmonary nodule is evident within the right middle lobe. No suspicious pulmonary nodule seen within the right lower lobe. There is a stable sub-4 mm pulmonary nodule in the right lower lobe supe rior segment. There are stable small sub-4 mm pulmonary nodules within the left upper lobe. No suspicious pulmonary nodule seen within the lingula. There is a stable sub-4 mm pulmonary nodule in t he posterior medial left lower lobe on image 87 of series 3. Emphysema: Stable moderate to severe emphysema Additional findings: There is severe vascular calcifications involving the thoracic aorta and coronar y arteries. There is enlargement of the pulmonary arterial tree likely related to underlying secondary pulmonary artery hypertension. Mediastinum: No lymphadenopathy. Upper abdomen: No abnormality. Osseous structures: There is levoscoliosis of the thoracic spine. There is diffuse osteopenia.. IMPRESSION: Lung-RADS Category 2: Benign- Continue annual screening with LDCT in 12 months Category S: Moderate to severe emphysema, severe vascular calcifications of the thoracic aorta and co ronary arteries, enlargement of the pulmonary arterial tree likely related to underlying secondary pulmonary hypertension. Category C: Not applicable.
== END 2019-09-12 14:58 | disposition home or self-care (01) ==
LOC: BICCT 14:57
PROVIDERS: ATTEND Family Medicine
DX: Z12.2 Encounter for screening for malignant neoplasm of respiratory organs (principal); Z87.891 Personal history of nicotine dependence; J43.9 Emphysema, unspecified; I25.10 Atherosclerotic heart disease of native coronary artery without angina pectoris; I70.0 Atherosclerosis of aorta; I28.8 Other diseases of pulmonary vessels
CPT/HCPCS: G0297

== ENCOUNTER 2021-02-09 10:17 | Inpatient (IN) | payer MEDICARE ==
[2021-02-09] MEDS ORDERED: Furosemide 100 MG/10 ML VIAL ONE (10:26)
[2021-02-09] MEDS ORDERED: Cefepime 2 GM VIAL ONE (10:27)
[2021-02-09] MEDS ORDERED: Vancomycin 1 GM/200 ML BAG ONE (10:27)
[2021-02-09 10:35] LABS: #Lymphocytes 0.6 thou/uL (1.20-3.40); #Monocytes 0.5 thou/uL (0.11-0.59); #Neutrophils 4.5 thou/uL (1.40-6.50); %Eosinophils 0.5 % (0.0-10.0); %Lymphocytes 10.1 % (21.0-51.0); %Monocytes 8.3 % (0.0-10.0); %Neutrophils 81.1 % (42.0-75.0); Hemoglobin 11.9 g/dL (12.0-16.0); Mean Corpuscular HGB CONC 30.7 g/dL (32.0-36.0); Mean Corpuscular Hemoglobin 27.7 pg (27.0-31.0); Mean Corpuscular Volume 90.1 fL (78.0-98.0); Mean Platelet Volume 8.4 fL (7.4-10.4); Platelet Count 297 thou/uL (130-400); RBC Distribution Width 14.2 % (11.5-14.5); White Blood Cell (WBC) Count 5.6 thou/uL (4.8-10.8)
[2021-02-09 10:53] LABS: ALT (SGPT) 23 U/L (8-55); AST (SGOT) 29 U/L (5-34); Albumin 3.8 g/dL (3.4-4.8); Alkaline Phosphatase 72 U/L (40-110); Anion Gap 14 mmol/L (10-20); BUN (Urea Nitrogen) 38 mg/dL (9.8-20.1); Bilirubin, Total 0.5 mg/dL (0.2-1.2); Calc. Creatinine Clearance 0 mL/min (70-130); Calcium 9.4 mg/dL (7.8-10.44); Carbon Dioxide 27 mmol/L (23-31); Chloride 106 mmol/L (98-107); Globulin 3.1 g/dL (2.4-3.5); Glucose 97 mg/dL (83-110); Potassium 5.2 mmol/L (3.5-5.1); Protein, Total 6.9 g/dL (5.8-8.1); Sodium 142 mmol/L (136-145)
[2021-02-09 10:56] LABS: Actual Bicarbonate (HCO3a) 24.4 mEq/L (22-28); Analyzer IN Cardio ER; Base Excess (BEa) -1.9 mEq/L (-2.0 to +3.0); CO2 Tension 48.2 mmHg (35.0-45.0); Calcium, Ionized (arterial) 1.25 mmol/L (1.12-1.30); Carboxyhemoglobin (COHb) 0.5 gm% (0.0-3.0); Hemoglobin (Hb) 12.3 g/dL (12.0-16.0); O2 Tension (PaO2), arterial 92.6 mmHg (> 60.0); Potassium - ABG Lab 4.77 mmol/L (3.70-5.30); Puncture Site RRA; pH, Arterial 7.32 (7.35-7.45)
[2021-02-09 11:18] LABS: CKMB 7.6 ng/mL (0-6.6)
[2021-02-09 11:35] LABS: Bacteria/HPF 4+ HPF (None Seen); Bilirubin Negative (Negative); Blood, Urine Negative (Negative); Glucose, Urine (Dipstick) Normal (Negative); Ketone, Urine Trace mg/dL (Negative); Leukocyte 25 Leu/uL (Negative); Nitrite 2+ (Negative); Protein, Urine (Dipstick) 70 mg/dL (Neg-Trace); pH, Urine 5.5 (5.0-9.0)
[2021-02-09 11:36] LABS: Clarity Hazy (Clear)
[2021-02-09 12:15] LABS: SARS-CoV-2 NAA Rapid Test DETECTED (NotDetected)
[2021-02-09] MEDS ORDERED: Lorazepam 2 MG/ML VIAL ONE (12:34)
[2021-02-09] MEDS ORDERED: Senokot S 8.6-50 MG TAB PO PRN (13:39)
[2021-02-09] MEDS ORDERED: Ondansetron ODT 4 MG TAB PO PRN (13:39)
[2021-02-09] MEDS ORDERED: Acetaminophen 325 MG TAB PO PRN (13:39)
[2021-02-09] MEDS ORDERED: Azithromycin 1,000 MG in Sodium Chloride 0.9% 500 ML IVPB SCH (14:30)
[2021-02-09 15:01] LABS: Potassium 5.2 mmol/L (3.5-5.1)
[2021-02-09 15:30] LABS: CKMB 7.6 ng/mL (0-6.6)
[2021-02-09] MEDS ORDERED: Albuterol 200 PUFF (6.7GM INHALER) INH PRN (15:57)
[2021-02-09] MEDS: Pancrelipase DR 12,000 1 CAP PO SCH (16:43)
[2021-02-09 16:57] LABS: Troponin I 0.237 ng/mL (< 0.028)
[2021-02-09] MEDS: Azithromycin 500 MG in Sodium Chloride 0.9% 250 ML 250 ML IVPB SCH (17:18)
[2021-02-09] MEDS: cefTRIAXone\\ROCEPHIN 1 GM in Sodium Chloride 0.9% 100 ML IVPB SCH (17:18)
[2021-02-09] MEDS ORDERED: Ziprasidone 20 MG VIAL IM PRN (17:37)
[2021-02-09] MEDS: Famotidine/PF 20 mg/2ml Vial SLOW IVP SCH (20:20)
[2021-02-09] MEDS: Mirtazapine 15 MG TAB PO SCH (20:20)
[2021-02-09] MEDS: Enoxaparin Sodium 40 MG/0.4 ML SYRINGE SC SCH (20:20)
[2021-02-09] MEDS: Lorazepam 2 MG/ML VIAL SLOW IVP PRN (20:39)
[2021-02-09 20:51] LABS: CKMB 7.1 ng/mL (0-6.6)
[2021-02-09] MEDS ORDERED: Donepezil HCl 5 MG TAB PO SCH (21:00)
[2021-02-10 03:50] LABS: #Lymphocytes 0.4 thou/uL (1.20-3.40); #Monocytes 0.6 thou/uL (0.11-0.59); #Neutrophils 3.7 thou/uL (1.40-6.50); %Basophils 0.1 % (0.0-1.0); %Eosinophils 0.1 % (0.0-10.0); %Lymphocytes 8.9 % (21.0-51.0); %Monocytes 13.2 % (0.0-10.0); %Neutrophils 77.6 % (42.0-75.0); Hemoglobin 10.3 g/dL (12.0-16.0); Mean Corpuscular Hemoglobin 27.4 pg (27.0-31.0); Mean Corpuscular Volume 88.3 fL (78.0-98.0); Mean Platelet Volume 8.4 fL (7.4-10.4); Platelet Count 231 thou/uL (130-400); RBC Distribution Width 14.5 % (11.5-14.5); Red Blood Cell (RBC) Count 3.75 mill/uL (4.20-5.40); White Blood Cell (WBC) Count 4.8 thou/uL (4.8-10.8)
[2021-02-10 04:07] LABS: Anion Gap 12 mmol/L (10-20); BUN (Urea Nitrogen) 37 mg/dL (9.8-20.1); Calc. Creatinine Clearance 36 mL/min (70-130); Calcium 8.8 mg/dL (7.8-10.44); Carbon Dioxide 33 mmol/L (23-31); Chloride 104 mmol/L (98-107); Glucose 70 mg/dL (83-110); Potassium 4.8 mmol/L (3.5-5.1); Sodium 144 mmol/L (136-145)
[2021-02-10] MEDS ORDERED: Furosemide 40 MG TAB PO SCH (07:30)
[2021-02-10] MEDS ORDERED: Pantoprazole 40 MG VIAL IVP SCH (09:00)
[2021-02-10] MEDS ORDERED: Losartan 25 MG TAB PO SCH (09:00)
[2021-02-10] MEDS ORDERED: Dexamethasone 4 mg/ml Vial SLOW IVP SCH ×2 (09:00)
[2021-02-10] MEDS ORDERED: Multivit, Therapeutic 1 TAB PO SCH (09:00)
[2021-02-10] MEDS: Enoxaparin Sodium 40 MG/0.4 ML SYRINGE SC SCH (09:21)
[2021-02-10] MEDS: Zinc Sulfate 220 MG CAP PO SCH (09:23)
[2021-02-10] MEDS: Ascorbic Acid 500 mg Chewable Tablet PO SCH (09:23)
[2021-02-10] MEDS: Cholecalciferol (Vitamin D3) 400 UNITS TAB PO SCH (09:23)
[2021-02-10] MEDS: Pancrelipase DR 12,000 1 CAP PO SCH ×3 (09:23→16:56)
[2021-02-10 09:57] LABS: Cardiac Risk 2.8 (Less than 4.5)
[2021-02-10] MEDS: Lorazepam 2 MG/ML VIAL SLOW IVP PRN (11:49)
[2021-02-10] MEDS: cefTRIAXone\\ROCEPHIN 1 GM in Sodium Chloride 0.9% 100 ML IVPB SCH (16:56)
[2021-02-10] MEDS: Azithromycin 500 MG in Sodium Chloride 0.9% 250 ML 250 ML IVPB SCH (16:56)
[2021-02-10] MEDS: 1/2 NS w/KCL 20 mEq 1,000 ML IV SCH (17:10)
[2021-02-10] MEDS: Famotidine/PF 20 mg/2ml Vial SLOW IVP SCH (20:31)
[2021-02-10] MEDS: Enoxaparin Sodium 60 MG/0.6 ML SYRINGE SC SCH (20:31)
[2021-02-10] MEDS: Mirtazapine 15 MG TAB PO SCH (20:34)
[2021-02-11] MEDS: Lorazepam 2 MG/ML VIAL SLOW IVP PRN ×3 (02:55→22:26)
[2021-02-11 07:10] LABS: Hemoglobin 11.5 g/dL (12.0-16.0); Mean Corpuscular HGB CONC 31.2 g/dL (32.0-36.0); Mean Corpuscular Hemoglobin 27.5 pg (27.0-31.0); Mean Corpuscular Volume 88.2 fL (78.0-98.0); Mean Platelet Volume 8.7 fL (7.4-10.4); Platelet Count 251 thou/uL (130-400); RBC Distribution Width 14.5 % (11.5-14.5); Red Blood Cell (RBC) Count 4.18 mill/uL (4.20-5.40); White Blood Cell (WBC) Count 7.1 thou/uL (4.8-10.8)
[2021-02-11 07:26] LABS: Anion Gap 13 mmol/L (10-20); BUN (Urea Nitrogen) 36 mg/dL (9.8-20.1); Calc. Creatinine Clearance 41 mL/min (70-130); Calcium 9.1 mg/dL (7.8-10.44); Carbon Dioxide 30 mmol/L (23-31); Chloride 105 mmol/L (98-107); Glucose 74 mg/dL (83-110); Potassium 4.9 mmol/L (3.5-5.1); Sodium 143 mmol/L (136-145)
[2021-02-11 07:34] LABS: Band 2 % (5-11); Eosinophils 1 % (0-10); Hypochromia SLIGHT = 6-15 cells (100X) (0-5/hpf); Lymphocytes 10 % (21-51); MDiff Complete? YES; Monocytes 7 % (0-10); Neutrophil 80 % (42-75); Ovalocytes SLIGHT = 2-5 cells (100X) (0-1/hpf); Platelet Morphology Comment Appears Adequate; Polychromasia SLIGHT = 2-3 cells (100X) (0-2/hpf)
[2021-02-11] MEDS: Enoxaparin Sodium 60 MG/0.6 ML SYRINGE SC SCH (07:48)
[2021-02-11] MEDS: Dexamethasone 4 mg/ml Vial SLOW IVP SCH (07:48)
[2021-02-11] MEDS: Pancrelipase DR 12,000 1 CAP PO SCH ×3 (07:49→18:22)
[2021-02-11] MEDS: Ascorbic Acid 500 mg Chewable Tablet PO SCH (07:49)
[2021-02-11] MEDS: Zinc Sulfate 220 MG CAP PO SCH (07:49)
[2021-02-11] MEDS: Furosemide 20 MG TAB PO SCH (07:49)
[2021-02-11] MEDS: Cholecalciferol (Vitamin D3) 400 UNITS TAB PO SCH (07:49)
[2021-02-11] MEDS: cefTRIAXone\\ROCEPHIN 1 GM in Sodium Chloride 0.9% 100 ML IVPB SCH (17:11)
[2021-02-11] MEDS: Azithromycin 500 MG in Sodium Chloride 0.9% 250 ML 250 ML IVPB SCH (17:11)
[2021-02-11] MEDS: 1/2 NS w/KCL 20 mEq 1,000 ML IV SCH (17:11)
[2021-02-11] MEDS: Famotidine/PF 20 mg/2ml Vial SLOW IVP SCH (21:02)
[2021-02-11] MEDS: Enoxaparin Sodium 40 MG/0.4 ML SYRINGE SC SCH (21:02)
[2021-02-11] MEDS: Mirtazapine 15 MG TAB PO SCH (21:03)
[2021-02-12 03:49] LABS: #Lymphocytes 0.8 thou/uL (1.20-3.40); #Monocytes 0.9 thou/uL (0.11-0.59); #Neutrophils 6.4 thou/uL (1.40-6.50); %Basophils 0.2 % (0.0-1.0); %Lymphocytes 9.2 % (21.0-51.0); %Monocytes 11.4 % (0.0-10.0); %Neutrophils 79.1 % (42.0-75.0); Mean Corpuscular HGB CONC 31.1 g/dL (32.0-36.0); Mean Corpuscular Hemoglobin 27.1 pg (27.0-31.0); Mean Platelet Volume 8.7 fL (7.4-10.4); Platelet Count 287 thou/uL (130-400); RBC Distribution Width 14.4 % (11.5-14.5); Red Blood Cell (RBC) Count 4.44 mill/uL (4.20-5.40); White Blood Cell (WBC) Count 8.1 thou/uL (4.8-10.8)
[2021-02-12] MEDS: Lorazepam 2 MG/ML VIAL SLOW IVP PRN ×2 (04:37→09:07)
[2021-02-12] MEDS: Pancrelipase DR 12,000 1 CAP PO SCH ×3 (08:43→18:20)
[2021-02-12] MEDS: Enoxaparin Sodium 40 MG/0.4 ML SYRINGE SC SCH ×2 (08:43→20:31)
[2021-02-12] MEDS: Dexamethasone 4 mg/ml Vial SLOW IVP SCH (08:43)
[2021-02-12] MEDS: Furosemide 20 MG TAB PO SCH (08:43)
[2021-02-12] MEDS: Cholecalciferol (Vitamin D3) 400 UNITS TAB PO SCH (08:44)
[2021-02-12] MEDS: Ascorbic Acid 500 mg Chewable Tablet PO SCH (08:44)
[2021-02-12] MEDS: Zinc Sulfate 220 MG CAP PO SCH (08:44)
[2021-02-12] MEDS: 1/2 NS w/KCL 20 mEq 1,000 ML IV SCH (13:58)
[2021-02-12] MEDS: Azithromycin 500 MG in Sodium Chloride 0.9% 250 ML 250 ML IVPB SCH (16:53)
[2021-02-12] MEDS: cefTRIAXone\\ROCEPHIN 1 GM in Sodium Chloride 0.9% 100 ML IVPB SCH (16:53)
[2021-02-12] MEDS: Famotidine/PF 20 mg/2ml Vial SLOW IVP SCH (20:31)
[2021-02-12] MEDS: Mirtazapine 15 MG TAB PO SCH (22:39)
[2021-02-13] MEDS: Lorazepam 2 MG/ML VIAL SLOW IVP PRN ×3 (01:10→21:06)
[2021-02-13 04:14] LABS: #Lymphocytes 0.6 thou/uL (1.20-3.40); #Monocytes 0.7 thou/uL (0.11-0.59); #Neutrophils 5.9 thou/uL (1.40-6.50); %Eosinophils 0.2 % (0.0-10.0); %Lymphocytes 8.1 % (21.0-51.0); %Monocytes 9.8 % (0.0-10.0); %Neutrophils 81.9 % (42.0-75.0); Hemoglobin 12.8 g/dL (12.0-16.0); Mean Corpuscular HGB CONC 30.7 g/dL (32.0-36.0); Mean Corpuscular Hemoglobin 26.9 pg (27.0-31.0); Mean Corpuscular Volume 87.5 fL (78.0-98.0); Mean Platelet Volume 8.6 fL (7.4-10.4); Platelet Count 295 thou/uL (130-400); RBC Distribution Width 14.7 % (11.5-14.5); Red Blood Cell (RBC) Count 4.74 mill/uL (4.20-5.40); White Blood Cell (WBC) Count 7.2 thou/uL (4.8-10.8)
[2021-02-13 04:40] LABS: Anion Gap 16 mmol/L (10-20); BUN (Urea Nitrogen) 40 mg/dL (9.8-20.1); Calc. Creatinine Clearance 41 mL/min (70-130); Calcium 9.5 mg/dL (7.8-10.44); Carbon Dioxide 26 mmol/L (23-31); Chloride 105 mmol/L (98-107); Glucose 104 mg/dL (83-110); Potassium 5.5 mmol/L (3.5-5.1); Sodium 141 mmol/L (136-145)
[2021-02-13] MEDS: 1/2 NS w/KCL 20 mEq 1,000 ML IV SCH (05:31)
[2021-02-13 07:41] LABS: Anion Gap 18 mmol/L (10-20); BUN (Urea Nitrogen) 42 mg/dL (9.8-20.1); Calc. Creatinine Clearance 40 mL/min (70-130); Carbon Dioxide 25 mmol/L (23-31); Chloride 106 mmol/L (98-107); Glucose 106 mg/dL (83-110); Sodium 143 mmol/L (136-145)
[2021-02-13] MEDS: Pancrelipase DR 12,000 1 CAP PO SCH ×3 (09:17→17:29)
[2021-02-13] MEDS: Ascorbic Acid 500 mg Chewable Tablet PO SCH (09:17)
[2021-02-13] MEDS: Furosemide 20 MG TAB PO SCH (09:17)
[2021-02-13] MEDS: Cholecalciferol (Vitamin D3) 400 UNITS TAB PO SCH (09:18)
[2021-02-13] MEDS: Zinc Sulfate 220 MG CAP PO SCH (09:18)
[2021-02-13] MEDS: Enoxaparin Sodium 40 MG/0.4 ML SYRINGE SC SCH ×2 (09:23→21:05)
[2021-02-13] MEDS: Dexamethasone 4 mg/ml Vial SLOW IVP SCH (09:23)
[2021-02-13 11:02] VITALS: BMI 21.0
[2021-02-13] MEDS ORDERED: Furosemide 20 MG/2 ML VIAL SLOW IVP SCH (15:30)
[2021-02-13] MEDS: Azithromycin 500 MG in Sodium Chloride 0.9% 250 ML 250 ML IVPB SCH (16:43)
[2021-02-13] MEDS: cefTRIAXone\\ROCEPHIN 1 GM in Sodium Chloride 0.9% 100 ML IVPB SCH (16:45)
[2021-02-13 20:51] LABS: Anion Gap 15 mmol/L (10-20); BUN (Urea Nitrogen) 42 mg/dL (9.8-20.1); Calc. Creatinine Clearance 34 mL/min (70-130); Calcium 9.3 mg/dL (7.8-10.44); Carbon Dioxide 30 mmol/L (23-31); Chloride 104 mmol/L (98-107); Glucose 161 mg/dL (83-110); Potassium 5.3 mmol/L (3.5-5.1); Sodium 144 mmol/L (136-145)
[2021-02-13] MEDS: Famotidine/PF 20 mg/2ml Vial SLOW IVP SCH (21:05)
[2021-02-13] MEDS: Mirtazapine 15 MG TAB PO SCH (21:06)
[2021-02-14] MEDS ORDERED: Metoprolol Tartrate 5 MG/5 ML VIAL IVP PRN (04:02)
[2021-02-14 04:57] VITALS: BP 122/96
[2021-02-14 06:37] LABS: #Lymphocytes 0.4 thou/uL (1.20-3.40); #Neutrophils 8.4 thou/uL (1.40-6.50); %Eosinophils 0.4 % (0.0-10.0); %Lymphocytes 4.3 % (21.0-51.0); %Monocytes 10.2 % (0.0-10.0); Mean Corpuscular HGB CONC 31.3 g/dL (32.0-36.0); Mean Corpuscular Hemoglobin 27.3 pg (27.0-31.0); Mean Corpuscular Volume 87.3 fL (78.0-98.0); Mean Platelet Volume 9.1 fL (7.4-10.4); Platelet Count 299 thou/uL (130-400); RBC Distribution Width 14.7 % (11.5-14.5); Red Blood Cell (RBC) Count 4.74 mill/uL (4.20-5.40); White Blood Cell (WBC) Count 9.9 thou/uL (4.8-10.8)
[2021-02-14] MEDS ORDERED: Furosemide 20 MG/2 ML VIAL SLOW IVP SCH (09:00)
[2021-02-14] MEDS: Dexamethasone 4 mg/ml Vial SLOW IVP SCH (09:03)
[2021-02-14] MEDS: Ascorbic Acid 500 mg Chewable Tablet PO SCH (09:04)
[2021-02-14] MEDS: Cholecalciferol (Vitamin D3) 400 UNITS TAB PO SCH (09:04)
[2021-02-14] MEDS: Pancrelipase DR 12,000 1 CAP PO SCH ×2 (09:04→13:16)
[2021-02-14] MEDS: Enoxaparin Sodium 40 MG/0.4 ML SYRINGE SC SCH (09:04)
[2021-02-14] MEDS: Zinc Sulfate 220 MG CAP PO SCH (09:04)
[2021-02-14 12:05] VITALS: TEMP 97.4
[2021-02-14] MEDS ORDERED: Lorazepam 2 MG/ML VIAL SLOW IVP PRN (13:25)
[2021-02-14] MEDS ORDERED: Morphine 2 MG/ML VIAL SLOW IVP PRN (13:25)
[2021-02-14] MEDS ORDERED: Morphine 4 MG/ML VIAL SLOW IVP PRN (13:29)
== END 2021-02-14 18:29 | disposition expired | DRG 177 ==
LOC: ERS 10:17 → IMCU/EMU 13:10
PROVIDERS: ADMIT Internal Medicine; ATTEND Internal Medicine
PROC: 5A0955A Assistance with Respiratory Ventilation, Greater than 96 Consecutive Hours, High Flow/Velocity Cannula (ICD-10-PCS; principal; 2021-02-09)
PROC: 8E0ZXY6 Isolation (ICD-10-PCS; 2021-02-09)
PROC: 3E0333Z Introduction of Anti-inflammatory into Peripheral Vein, Percutaneous Approach (ICD-10-PCS; 2021-02-10)
PROC: 0DH67UZ Insertion of Feeding Device into Stomach, Via Natural or Artificial Opening (ICD-10-PCS; 2021-02-13)
PROC: 3E0G76Z Introduction of Nutritional Substance into Upper GI, Via Natural or Artificial Opening (ICD-10-PCS; 2021-02-13)
PROC: 5A09357 Assistance with Respiratory Ventilation, Less than 24 Consecutive Hours, Continuous Positive Airway Pressure (ICD-10-PCS; 2021-02-14)
DX: U07.1 COVID-19 (principal); J12.82 Pneumonia due to coronavirus disease 2019; J96.01 Acute respiratory failure with hypoxia; G93.41 Metabolic encephalopathy; I21.A1 Myocardial infarction type 2; J44.0 Chronic obstructive pulmonary disease with (acute) lower respiratory infection; I50.32 Chronic diastolic (congestive) heart failure; N39.0 Urinary tract infection, site not specified; F03.91 Unspecified dementia, unspecified severity, with behavioral disturbance; Z66 Do not resuscitate; I11.0 Hypertensive heart disease with heart failure; E11.9 Type 2 diabetes mellitus without complications; E78.00 Pure hypercholesterolemia, unspecified; I48.91 Unspecified atrial fibrillation; I27.20 Pulmonary hypertension, unspecified; E87.5 Hyperkalemia; Z78.1 Physical restraint status; Z88.8 Allergy status to other drugs, medicaments and biological substances; Z90.49 Acquired absence of other specified parts of digestive tract; Z79.899 Other long term (current) drug therapy; Z79.82 Long term (current) use of aspirin; Z87.891 Personal history of nicotine dependence
CPT/HCPCS: 0240U; 36415; 36416; 36600; 51702; 70450; 71045; 74018; 80048; 80053; 80061; 81003; 81015; 82140; 82553; 82728; 82805; 83605; 84443; 84484; 85025; 85379; 86140; 87040; 93005; 94660; 94760; 96365; 96367; 96375; J0456; J0692; J0696; J1100; J1650; J1940; J2060; J2270; J3370; J3480; J3490; J7050; S0028